=== PATIENT | female | born 1995 | race Two or more races ===

== ENCOUNTER 2025-03-31 09:01 | Outpatient (CLI) | payer OTHER | END 2025-03-31 09:06 | disposition home or self-care (01) | LOC: RAD 09:01 | PROVIDERS: ATTEND Physical Medicine & Rehabilitation Hospice and Palliative Medicine | DX: M54.50 Low back pain, unspecified (principal); M53.3 Sacrococcygeal disorders, not elsewhere classified; M25.561 Pain in right knee; M25.562 Pain in left knee ==